=== PATIENT | male | born 1995 | race Caucasian/White ===

== ENCOUNTER 2019-12-28 17:43 | Emergency (ER) | payer BC, SELFPAY ==
[2019-12-28 18:02] VITALS: BP 138/87; PULSE 125; RESP 20; TEMP 38.9; O2SAT 99
--- NOTE | 2019-12-28 18:08 | ED.URI ---
HPI - URI/Sore Throat General Chief Complaint: Upper Respiratory Infection Stated Complaint: fever/sore throat/lower back pain History of Present Illness HPI Narrative: This is a 24-year-old comes in complaining of body aches fever and some nausea for the past 2 days. 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 EYES: Denies visual changes, redness, or discharge. ENT: Positive positive s rhinorrhea, congestion, sore throat, or otalgia. CARDIOVASCULAR:Denies chest pain, palpitations, or edema. RESPIRATORY: Reports cough or dyspnea. GASTROINTESTINAL: Denies abdominal pain, nausea, vomiting, or diarrhea. GENITOURINARY: Denies dysuria or hematuria. SKIN:[Denies rash or itching. MUSCULOSKELETAL:Denies back pain, joint pain, or myalgia. NEUROLOGIC: Denies headache, numbness, or weakness. PSYCHIATRIC:Denies anxiety or depression PMFSH Social History Social History Gender identity (if verbalized by the patient): Male Comments At time as signature, I have reviewed and agree with nursing past medical, social, surgical and family history. Please see nursing chart for further information. There is no relevant family history pertinent to the presenting complaint. Exam Narrative: Exam Narrative: GENERAL:Well-appearing, well-nourished, and in no acute distress. Febrile HEAD:Normocephalic, atraumatic. EYES: PERRLA and EOMI. ENT: Nares clear, n moderate rhinorrhea or epistaxis. Mucous membranes moist. NECK: Supple. CHEST: Clear to auscultation. No respiratory distress. HEART: Tachycardia rate and rhythm. No murmur heard. Normal peripheral pulses. ABDOMEN: Soft, nontender, nondistended, normal active bowel sounds. EXTREMITIES: Normal range of motion. No edema. SKIN: Warm, dry, no rash. NEURO: No focal deficits. Alert and oriented x3. Course Vital Signs Vital signs: Vital Signs Temperature 102.0 F H 12/28/19 18:02 Pulse Rate 125 H 12/28/19 18:02 Respiratory Rate 20 12/28/19 18:02 Blood Pressure 138/87 12/28/19 18:02 Pulse Oximetry 99 12/28/19 18:02 Temperature 102.0 F H 12/28/19 18:02 Pulse Rate 125 H 12/28/19 18:02 Respiratory Rate 20 12/28/19 18:02 Blood Pressure 138/87 12/28/19 18:02 Pulse Oximetry 99 12/28/19 18:02 MDM - URI/Sore Throat Lab Data Labs: Influenza A Screen Negative Reference Range: Negative Influenza B Screen Positive Reference Range: Negative Strep Screen Presumptive Negative *(Reference Range: Negative)* Discharge Plan Discharge Clinical Impression: Influenza Patient Disposition: Home, Self-Care Condition: Stable Instructions: Antibiotic Form, Influenza (ED), Viral Syndrome (ED) Prescriptions: New oseltamivir [Tamiflu] 75 mg capsule 75 mg PO Q12H 5 Days Qty: 10 RF: 0 ondansetron 4 mg tablet,disintegrating 4 mg PO Q8H PRN (Reason: nausea and vomiting) Qty: 10 RF: 0 Follow-up/Referrals: UNKNOWN,DOCTOR [Primary Care Provider] - Stand Alone Forms: Work/School Release IP Time of Disposition: 18:15 Discharge Date/Time: 12/28/19 18:17
== END 2019-12-28 18:17 | disposition home or self-care (01) ==
PROVIDERS: Emergency Provider Nurse Practitioner Family
DX: J10.1 Influenza due to other identified influenza virus with other respiratory manifestations (principal)
CPT/HCPCS: 87081; 87804; 87880; 99203; G0463

== ENCOUNTER 2021-08-20 11:24 | Emergency (ER) | payer BC, SELFPAY ==
[2021-08-20 11:48] VITALS: BP 185/99; PULSE 85; RESP 16; TEMP 36.9; O2SAT 97
--- NOTE | 2021-08-20 11:56 | ED.URI ---
HPI - URI/Sore Throat General Chief Complaint: Upper Respiratory Infection Stated Complaint: Chest Congestion,Sore Throat,Headache,Sinus Source: patient and RN notes reviewed Mode of arrival: ambulatory History of Present Illness HPI Narrative: This is a 26-year-old male that presented to urgent care with complaints nasal congestion with greenish mucus headaches and sinus pressure. Patient noted that on Wednesday he started to develop congestion with clear mucus his situation has worsened since then his mucus has since then turned green and he has developed a headache with sinus pressure. The patient denies SOB, CP, palpitation, extremity numbness, lightheadedness, dizziness, constipation, diarrhea, chills, or fever. Related Data Allergies Allergy/AdvReac Type Severity Reaction Status Date / Time No Known Allergies Allergy Verified 08/20/21 12:05 Review of Systems Review of Systems: A 14 organ system Review of Systems was performed and pertinent positives included in the HPI, otherwise remaining ROS is negative. A 14 organ system Review of Systems was performed and pertinent positives included in the HPI, otherwise remaining ROS is negative. [facility] Family History Family History (Updated 08/20/21 @ 12:14 by RAMON Guadarrama) Other Family history non-contributory Social History Social History Gender identity (if verbalized by the patient): Male Exam Narrative: GENERAL: This is a well-nourished, well-developed patient, in no apparent distress. HEAD: normocephalic, atraumatic. EYES: PERRL. Sclera clear/white. Vision is grossly intact. EARS: External ears normal, auditory canals clear and without drainage, TMs normal without perforation. Hearing grossly intact. NOSE: External nose normal with no obvious nasal discharge, nares without redness, no rhinorrhea. Frontal tenderness THROAT: Mucous membranes moist, posterior pharynx clear. NECK: Neck supple, non-tender without lymphadenopathy, masses or thyromegaly. CARDIOVASCULAR: Regular rate and rhythm without murmurs, gallops, or rubs. RESPIRATORY: Clear to auscultation. Breath sounds equal bilaterally. No wheezes, rales, or rhonchi. GASTROINTESTINAL: Abdomen soft, non-tender, nondistended. Bowel sounds are active. No hepato-splenomegaly, or palpable masses. No guarding. SKIN: warm, intact with no suspicious lesions or rash, good texture and turgor. NEURO: awake, alert, and oriented to person, place and time. There were no obvious focal neurologic abnormalities. Steady gait EXTREMITIES: Normal range of motion. No edema. No calf tenderness. Negative Homans sign bilaterally. BACK: Nontender without deformity or crepitance. No flank tenderness. Course Course Emergency Course: Patient will discharge home with antibiotics Augmentin x7 days in Tessalon Perles along with guaifenesin he is being treated for sinusitis Vital Signs Vital signs: Vital Signs Temperature 98.5 F 08/20/21 11:48 Pulse Rate 85 08/20/21 11:48 Respiratory Rate 16 08/20/21 11:48 Blood Pressure 185/99 H 08/20/21 11:48 Pulse Oximetry 97 08/20/21 11:48 Temperature 98.5 F 08/20/21 11:48 Pulse Rate 85 08/20/21 11:48 Respiratory Rate 16 08/20/21 11:48 Blood Pressure 185/99 H 08/20/21 11:48 Pulse Oximetry 97 08/20/21 11:48 MDM - URI/Sore Throat Differential Diagnosis Differential diagnosis: Likely upper respiratory infection, sinusitis, pharyngitis and other (covid versus strep) Lab Data Lab results narrative: Covid negative Strep negative Discharge Plan Discharge Clinical Impression: Sinusitis Qualifiers: Sinusitis location: frontal Chronicity: acute Patient Disposition: Home, Self-Care Condition: Stable Instructions: Antibiotic Form, Sinusitis (ED) Prescriptions: New amoxicillin-pot clavulanate [Augmentin] 875-125 mg tablet 1 tablet PO Q12H 7 Days Qty: 14 RF: 0 benzonatate [Tessalon Pe
== END 2021-08-20 12:18 | disposition home or self-care (01) ==
PROVIDERS: Emergency Provider Nurse Practitioner; PCP Nurse Practitioner Family
DX: J06.9 Acute upper respiratory infection, unspecified (principal); Z20.822 Contact with and (suspected) exposure to COVID-19
CPT/HCPCS: 87081; 87426; 87880; 99213; C9803; G0463